=== PATIENT | male | born 1975 | race African-American/Black ===

== ENCOUNTER 2025-03-02 12:19 | Emergency (ER) | payer OTHER ==
[2025-03-02] MEDS: POLYETHYLENE GLYCOL (HEALTHYLAX) 3350 17 GM PACKET PO ONE (13:40)
[2025-03-02] MEDS: MINERAL OIL ENEMA 133 ML ENEMA RC ONE ×2 (13:48→15:03)
[2025-03-02 15:13] VITALS: TEMP 98.8; BMI 29.5
[2025-03-02 15:28] VITALS: BP 106/55; PULSE 90; RESP 20
== END 2025-03-02 16:16 | disposition home or self-care (01) ==
LOC: JER 12:19
DX: K59.03 Drug induced constipation (principal); T40.2X5A Adverse effect of other opioids, initial encounter; R10.30 Lower abdominal pain, unspecified; R14.0 Abdominal distension (gaseous); R14.3 Flatulence
CPT/HCPCS: 99283-25